=== PATIENT | male | born 1965 | race Caucasian/White ===

== ENCOUNTER 2018-06-21 15:21 | Inpatient (IN) | payer MEDICAID ==
[~2018-06-21] VITALS: Ht 180.3 cm; Wt 86.0 kg
[2018-06-21 15:53] LABS: BASOPHILS # (AUTO) 0.09 x10^3/uL (0-0.1); BASOPHILS % (AUTO) 1 % (0-1); EOSINOPHILS # (AUTO) 0.01 x10^3/uL (0-0.4); EOSINOPHILS % (AUTO) 0 % (1-7); LYMPHOCYTES # (AUTO) 0.98 x10^3/uL (1-3.4); LYMPHOCYTES % (AUTO) 9 % (22-44); MD NO; MEAN CORPUSCULAR HGB CONC 35.2 g/dL (33.2-36.2); MEAN CORPUSCULAR VOLUME 99.5 fL (81-97); MEAN PLATELET VOLUME 7.9 fL (7.4-10.4); MONOCYTES # (AUTO) 0.78 x10^3/uL (0.2-0.8); MONOCYTES % (AUTO) 7 % (2-9); NEUTROPHILS # (AUTO) 9.22 x10^3/uL (1.8-6.8); NEUTROPHILS % (AUTO) 83 % (42-75); PLATELET COUNT 162 x10^3/uL (130-400); RED BLOOD COUNT 4.13 x10^6/uL (4.38-5.82); RED CELL DISTRIBUTION WIDTH 14.2 % (9.4-14.8)
[2018-06-21] MEDS ORDERED: FAMOTIDINE 20 MG/2 ML IVPush ONE (16:00)
[2018-06-21] MEDS ORDERED: SODIUM CHLORIDE 0.9% 1,000ML IVBOLUS ONE ×2 (16:00→16:30)
[2018-06-21] MEDS ORDERED: LORazepam 2 MG/ML, 1ML IVPush ONE (16:00)
[2018-06-21] MEDS ORDERED: THIAMINE 100MG TABLET PO ONE (16:00)
[2018-06-21] MEDS ORDERED: PLEASE ENTER HEIGHT AND WEIGHT MC SCH (16:00)
[2018-06-21] MEDS ORDERED: ONDANSETRON 2MG/ML, 2ML IVPush ONE (16:00)
[2018-06-21 16:06] LABS: ALANINE AMINOTRANSFERASE 70 U/L (12-78); ALBUMIN 3.9 g/dL (3.4-5.0); ANION GAP 12 mmol/L (5-15); CALCIUM 9.3 mg/dL (8.5-10.1); CHLORIDE 99 mmol/L (98-107); CREATININE 3.23 mg/dL (0.7-1.3); INTERNATIONAL NORMALIZED RATIO 1.03 (0.93-1.1); PROTHROMBIN TIME 10.8 Seconds (9.6-11.5)
[2018-06-21 16:08] LABS: ALKALINE PHOSPHATASE 79 U/L (45-117); BILIRUBIN,TOTAL 1.8 mg/dL (0.2-1.0); TOTAL PROTEIN 7.9 g/dL (6.4-8.2)
[2018-06-21] MEDS ORDERED: SODIUM CHLORIDE 0.9% 1,000 ML IV ONE (16:16)
[2018-06-21] MEDS ORDERED: LORazepam 2 MG/ML, 1ML IVPush PRN (16:30)
[2018-06-21] MEDS ORDERED: FAMOTIDINE 20 MG TABLET ONE (16:36)
[2018-06-21] MEDS ORDERED: ONDANSETRON ODT 4 MG ONE (16:36)
[2018-06-21] MEDS ORDERED: THIAMINE 100MG TABLET ONE (16:36)
[2018-06-21] MEDS ORDERED: LORazepam 1MG TABLET ONE (16:37)
[2018-06-21] MEDS ORDERED: ONDANSETRON 2MG/ML, 2ML ONE (16:48)
[2018-06-21] MEDS ORDERED: LORazepam 2 MG/ML, 1ML ONE ×2 (16:48→17:29)
[2018-06-21] MEDS ORDERED: FAMOTIDINE 20 MG/2 ML ONE (16:48)
[2018-06-21 16:53] LABS: TROPONIN I < 0.015 ng/mL (0.000-0.045)
--- NOTE | 2018-06-21 17:32 | NUR ---
PT WITH SILVERSUMMIT. DENIED BY HARSH AT [facility] AND BETY AT [facility]
[2018-06-21] MEDS: CHLORDIAZEPOXIDE 10 MG CAPSULE PO SCH ×2 (18:00→22:05)
[2018-06-21] MEDS ORDERED: LORazepam 2 MG/ML, 1ML IV PRN ×4 (18:00)
[2018-06-21] MEDS ORDERED: LORazepam 1MG TABLET PO PRN (18:00)
[2018-06-21] MEDS ORDERED: NICOTINE 14MG/24 HR PATCH.TD24 ONE (20:05)
[2018-06-21] MEDS ORDERED: HEPARIN 5,000 UNITS/ML, 1ML ONE (20:05)
[2018-06-21] MEDS: HEPARIN 5,000 UNITS/ML, 1ML SQ SCH (20:09)
[2018-06-21] MEDS: NICOTINE 14MG/24 HR PATCH.TD24 TD SCH (20:09)
--- NOTE | 2018-06-21 20:14 | NUR ---
pt is snoring sleeping unable to wake up but air way was maintained applied 1 liter of oxygen via NC vss bp stable at this time
[2018-06-21] MEDS: POTASSIUM CHLORIDE 20 MEQ, MAGNESIUM SULFATE 1 GM, FOLIC ACID 1 MG, THIAMINE 200 MG, MV... IV SCH (20:25)
--- NOTE | 2018-06-21 21:29 | NUR ---
report given to rn pt is ready to be transferred
[2018-06-21 22:03] VITALS: BP 133/82
[2018-06-21 22:59] LABS: AMPHETAMINE SCREEN, URINE Positive (Negative); BARBITURATE SCREEN, URINE Negative (Negative); BENZODIAZEPINE SCREEN, URINE Negative (Negative); CANNABINOID SCREEN, URINE Negative (Negative); COCAINE SCREEN, URINE Negative (Negative); METHADONE SCREEN, URINE Negative (Negative); OPIATE SCREEN, URINE Negative (Negative)
[2018-06-22] MEDS: HEPARIN 5,000 UNITS/ML, 1ML SQ SCH ×3 (02:04→17:37)
[2018-06-22 02:05] VITALS: BP 122/77
[2018-06-22] MEDS: ONDANSETRON 2MG/ML, 2ML IV PRN ×2 (04:57→19:20)
[2018-06-22] MEDS: CHLORDIAZEPOXIDE 10 MG CAPSULE PO SCH ×2 (04:58→12:47)
[2018-06-22] MEDS: NS + 20MEQ KCL 1,000 ML IV SCH ×3 (05:37→23:14)
[2018-06-22] MEDS: LORazepam 1MG TABLET PO PRN ×4 (05:46→19:21)
[2018-06-22 06:07] LABS: CHLORIDE 109 mmol/L (98-107)
[2018-06-22 06:14] LABS: ALANINE AMINOTRANSFERASE 53 U/L (12-78); ALKALINE PHOSPHATASE 65 U/L (45-117); ANION GAP 9 mmol/L (5-15); BILIRUBIN,TOTAL 1.9 mg/dL (0.2-1.0); CALCIUM 8.1 mg/dL (8.5-10.1); CREATININE 1.45 mg/dL (0.7-1.3); TOTAL PROTEIN 6.4 g/dL (6.4-8.2)
[2018-06-22 06:15] LABS: MEAN CORPUSCULAR HEMOGLOBIN 35.2 pg (27.5-34.5); MEAN CORPUSCULAR HGB CONC 34.6 g/dL (33.2-36.2); MEAN CORPUSCULAR VOLUME 101.6 fL (81-97); MEAN PLATELET VOLUME 7.8 fL (7.4-10.4); PLATELET COUNT 121 x10^3/uL (130-400); RED CELL DISTRIBUTION WIDTH 14.3 % (9.4-14.8)
[2018-06-22 06:46] LABS: BASOPHILS # (AUTO) 0.03 x10^3/uL (0-0.1); BASOPHILS % (AUTO) 0 % (0-1); EOSINOPHILS % (AUTO) 3 % (1-7); LYMPHOCYTES # (AUTO) 1.22 x10^3/uL (1-3.4); LYMPHOCYTES % (AUTO) 19 % (22-44); MD SCAN; MONOCYTES # (AUTO) 0.41 x10^3/uL (0.2-0.8); MONOCYTES % (AUTO) 6 % (2-9); NEUTROPHILS % (AUTO) 71 % (42-75)
[2018-06-22 08:05] VITALS: BP 129/73
[2018-06-22 12:45] VITALS: BP 113/71
[2018-06-22] MEDS: PANTOPRAZOLE 20MG TABLET PO SCH (17:38)
[2018-06-22] MEDS: NICOTINE 14MG/24 HR PATCH.TD24 TD SCH (17:41)
[2018-06-22 20:07] VITALS: BP 128/84
[2018-06-22] MEDS: POTASSIUM CHLORIDE 20 MEQ, MAGNESIUM SULFATE 1 GM, FOLIC ACID 1 MG, THIAMINE 200 MG, MV... IV SCH (23:05)
[2018-06-23] MEDS: HEPARIN 5,000 UNITS/ML, 1ML SQ SCH ×3 (01:31→17:51)
[2018-06-23] MEDS: LORazepam 1MG TABLET PO PRN ×2 (01:31→09:04)
[2018-06-23 02:06] VITALS: BP 105/69
[2018-06-23 05:39] LABS: BASOPHILS # (AUTO) 0.03 x10^3/uL (0-0.1); BASOPHILS % (AUTO) 1 % (0-1); EOSINOPHILS # (AUTO) 0.23 x10^3/uL (0-0.4); EOSINOPHILS % (AUTO) 4 % (1-7); LYMPHOCYTES # (AUTO) 1.16 x10^3/uL (1-3.4); LYMPHOCYTES % (AUTO) 22 % (22-44); MD NO; MEAN CORPUSCULAR HEMOGLOBIN 35.4 pg (27.5-34.5); MEAN CORPUSCULAR HGB CONC 34.9 g/dL (33.2-36.2); MEAN CORPUSCULAR VOLUME 101.5 fL (81-97); MEAN PLATELET VOLUME 7.4 fL (7.4-10.4); MONOCYTES # (AUTO) 0.38 x10^3/uL (0.2-0.8); MONOCYTES % (AUTO) 7 % (2-9); NEUTROPHILS # (AUTO) 3.58 x10^3/uL (1.8-6.8); NEUTROPHILS % (AUTO) 67 % (42-75); PLATELET COUNT 130 x10^3/uL (130-400); RED BLOOD COUNT 3.34 x10^6/uL (4.38-5.82); RED CELL DISTRIBUTION WIDTH 14.3 % (9.4-14.8)
[2018-06-23 06:28] LABS: ALANINE AMINOTRANSFERASE 57 U/L (12-78); ALBUMIN 2.6 g/dL (3.4-5.0); ANION GAP 6 mmol/L (5-15); CHLORIDE 109 mmol/L (98-107); CREATININE 0.89 mg/dL (0.7-1.3)
[2018-06-23] MEDS: NS + 20MEQ KCL 1,000 ML IV SCH ×2 (06:30→17:50)
[2018-06-23] MEDS: PANTOPRAZOLE 20MG TABLET PO SCH ×2 (06:30→17:51)
[2018-06-23 06:55] LABS: ALKALINE PHOSPHATASE 63 U/L (45-117); BILIRUBIN,TOTAL 0.8 mg/dL (0.2-1.0)
[2018-06-23 07:48] VITALS: BP 159/90
[2018-06-23] MEDS: LORazepam 0.5MG TABLET PO PRN ×2 (11:59→20:43)
[2018-06-23 13:30] VITALS: BP 146/78
[2018-06-23] MEDS: NICOTINE 14MG/24 HR PATCH.TD24 TD SCH (17:50)
[2018-06-23 18:46] VITALS: BP 169/94
[2018-06-23] MEDS: ONDANSETRON 2MG/ML, 2ML IV PRN (20:45)
[2018-06-23] MEDS: POTASSIUM CHLORIDE 20 MEQ, MAGNESIUM SULFATE 1 GM, FOLIC ACID 1 MG, THIAMINE 200 MG, MV... IV SCH (22:55)
[2018-06-24] MEDS: LORazepam 1MG TABLET PO PRN ×3 (00:05→19:47)
[2018-06-24 00:52] VITALS: BP 168/93
[2018-06-24] MEDS: HEPARIN 5,000 UNITS/ML, 1ML SQ SCH ×3 (01:00→17:43)
[2018-06-24] MEDS: PANTOPRAZOLE 20MG TABLET PO SCH ×2 (06:21→17:43)
[2018-06-24 07:23] VITALS: BP 161/86
[2018-06-24] MEDS: THIAMINE 100MG TABLET PO SCH (07:40)
[2018-06-24] MEDS: FOLIC ACID 1 MG TABLET PO SCH (07:40)
[2018-06-24] MEDS: MULTIVITAMIN 1 TABLET PO SCH (07:40)
[2018-06-24 08:10] LABS: ALANINE AMINOTRANSFERASE 71 U/L (12-78); ALBUMIN 2.8 g/dL (3.4-5.0); ANION GAP 6 mmol/L (5-15); CALCIUM 8.3 mg/dL (8.5-10.1); CHLORIDE 104 mmol/L (98-107); CREATININE 0.73 mg/dL (0.7-1.3)
[2018-06-24 08:13] LABS: ALKALINE PHOSPHATASE 71 U/L (45-117); BILIRUBIN,TOTAL 0.9 mg/dL (0.2-1.0); TOTAL PROTEIN 6.6 g/dL (6.4-8.2)
[2018-06-24] MEDS: NS + 20MEQ KCL 1,000 ML IV SCH ×2 (10:15→22:50)
[2018-06-24 13:34] VITALS: BP 161/91
[2018-06-24] MEDS ORDERED: MAGNESIUM SULFATE 3 GM in SODIUM CHLORIDE 0.9% 100 ML IV ONE (14:00)
[2018-06-24] MEDS ORDERED: POTASSIUM CHLORIDE 20 MEQ TAB.ER.PRT PO ONE (14:00)
[2018-06-24 14:58] LABS: MICROSCOPIC NOT IND
[2018-06-24 15:03] LABS: CULTURE INDICATED? NO
[2018-06-24] MEDS: NICOTINE 14MG/24 HR PATCH.TD24 TD SCH (17:43)
[2018-06-24] MEDS: ONDANSETRON 2MG/ML, 2ML IV PRN (19:47)
[2018-06-24 20:23] VITALS: BP 153/88
[2018-06-25] MEDS: LORazepam 1MG TABLET PO PRN ×3 (02:09→14:53)
[2018-06-25] MEDS: HEPARIN 5,000 UNITS/ML, 1ML SQ SCH ×3 (02:09→17:55)
[2018-06-25 02:12] VITALS: BP 169/96
[2018-06-25] MEDS: PANTOPRAZOLE 20MG TABLET PO SCH ×2 (05:38→17:55)
[2018-06-25 06:14] LABS: CHLORIDE 107 mmol/L (98-107)
[2018-06-25 06:26] LABS: ALANINE AMINOTRANSFERASE 87 U/L (12-78); ALKALINE PHOSPHATASE 74 U/L (45-117); ANION GAP 6 mmol/L (5-15); BILIRUBIN,TOTAL 0.6 mg/dL (0.2-1.0); CALCIUM 8.7 mg/dL (8.5-10.1); CREATININE 0.75 mg/dL (0.7-1.3); TOTAL PROTEIN 6.7 g/dL (6.4-8.2)
[2018-06-25 06:31] LABS: BASOPHILS # (AUTO) 0.02 x10^3/uL (0-0.1); BASOPHILS % (AUTO) 0 % (0-1); EOSINOPHILS # (AUTO) 0.33 x10^3/uL (0-0.4); EOSINOPHILS % (AUTO) 5 % (1-7); LYMPHOCYTES # (AUTO) 1.13 x10^3/uL (1-3.4); LYMPHOCYTES % (AUTO) 17 % (22-44); MD NO; MEAN CORPUSCULAR HEMOGLOBIN 34.3 pg (27.5-34.5); MEAN CORPUSCULAR HGB CONC 33.9 g/dL (33.2-36.2); MEAN CORPUSCULAR VOLUME 101.2 fL (81-97); MEAN PLATELET VOLUME 7.4 fL (7.4-10.4); MONOCYTES # (AUTO) 0.63 x10^3/uL (0.2-0.8); MONOCYTES % (AUTO) 10 % (2-9); NEUTROPHILS # (AUTO) 4.53 x10^3/uL (1.8-6.8); NEUTROPHILS % (AUTO) 68 % (42-75); PLATELET COUNT 253 x10^3/uL (130-400); RED BLOOD COUNT 3.74 x10^6/uL (4.38-5.82); RED CELL DISTRIBUTION WIDTH 14.6 % (9.4-14.8)
[2018-06-25 08:26] VITALS: BP 158/91
[2018-06-25] MEDS: MULTIVITAMIN 1 TABLET PO SCH (10:01)
[2018-06-25] MEDS: THIAMINE 100MG TABLET PO SCH (10:01)
[2018-06-25] MEDS: FOLIC ACID 1 MG TABLET PO SCH (10:01)
[2018-06-25 12:40] VITALS: BP 150/83
[2018-06-25] MEDS ORDERED: NICOTINE 21 MG/24 HR PATCH.TD24 ONE (13:07)
[2018-06-25] MEDS: NICOTINE 21 MG/24 HR PATCH.TD24 TD SCH (13:10)
[2018-06-25] MEDS: NS + 20MEQ KCL 1,000 ML IV SCH (15:30)
[2018-06-25 20:29] VITALS: BP 135/81
[2018-06-25] MEDS: LORazepam 0.5MG TABLET PO PRN (23:40)
[2018-06-26] MEDS: HEPARIN 5,000 UNITS/ML, 1ML SQ SCH ×3 (01:17→17:36)
[2018-06-26 01:47] VITALS: BP 145/80
[2018-06-26] MEDS: LORazepam 1MG TABLET PO PRN (03:01)
[2018-06-26 05:18] LABS: BASOPHILS # (AUTO) 0.04 x10^3/uL (0-0.1); BASOPHILS % (AUTO) 1 % (0-1); EOSINOPHILS # (AUTO) 0.32 x10^3/uL (0-0.4); EOSINOPHILS % (AUTO) 4 % (1-7); LYMPHOCYTES # (AUTO) 1.32 x10^3/uL (1-3.4); LYMPHOCYTES % (AUTO) 17 % (22-44); MD NO; MEAN CORPUSCULAR HEMOGLOBIN 35.1 pg (27.5-34.5); MEAN CORPUSCULAR HGB CONC 34.9 g/dL (33.2-36.2); MEAN CORPUSCULAR VOLUME 100.6 fL (81-97); MEAN PLATELET VOLUME 7.7 fL (7.4-10.4); MONOCYTES # (AUTO) 0.75 x10^3/uL (0.2-0.8); MONOCYTES % (AUTO) 9 % (2-9); NEUTROPHILS # (AUTO) 5.52 x10^3/uL (1.8-6.8); NEUTROPHILS % (AUTO) 70 % (42-75); PLATELET COUNT 292 x10^3/uL (130-400); RED BLOOD COUNT 4.06 x10^6/uL (4.38-5.82); RED CELL DISTRIBUTION WIDTH 14.9 % (9.4-14.8)
[2018-06-26 05:29] LABS: CHLORIDE 105 mmol/L (98-107)
[2018-06-26 05:50] LABS: ALANINE AMINOTRANSFERASE 120 U/L (12-78); ALBUMIN 3.2 g/dL (3.4-5.0); ALKALINE PHOSPHATASE 77 U/L (45-117); ANION GAP 8 mmol/L (5-15); BILIRUBIN,TOTAL 0.6 mg/dL (0.2-1.0); CALCIUM 9.2 mg/dL (8.5-10.1); CREATININE 0.83 mg/dL (0.7-1.3); TOTAL PROTEIN 7.2 g/dL (6.4-8.2)
[2018-06-26] MEDS: PANTOPRAZOLE 20MG TABLET PO SCH ×2 (05:56→16:00)
[2018-06-26] MEDS: THIAMINE 100MG TABLET PO SCH (09:19)
[2018-06-26] MEDS: FOLIC ACID 1 MG TABLET PO SCH (09:19)
[2018-06-26] MEDS: MULTIVITAMIN 1 TABLET PO SCH (09:19)
[2018-06-26] MEDS ORDERED: SPIR1TAB3 PO (09:54)
[2018-06-26] MEDS ORDERED: ATEN100T PO (09:55)
[2018-06-26] MEDS ORDERED: LOSA100T14 PO (09:55)
[2018-06-26] MEDS: NICOTINE 21 MG/24 HR PATCH.TD24 TD SCH (12:42)
[2018-06-26 13:01] VITALS: BP 152/90
[2018-06-26] MEDS: LORazepam 0.5MG TABLET PO PRN ×2 (14:43→22:27)
[2018-06-26] MEDS: SODIUM CHLORIDE 0.45% 1,000 ML IV SCH (16:00)
[2018-06-26] MEDS ORDERED: DOCUSATE 50 MG/5 ML, 10ML UDC PO PRN (17:30)
[2018-06-26 18:45] VITALS: BP 141/79
[2018-06-27 00:09] VITALS: BP 146/77
[2018-06-27] MEDS: LORazepam 1MG TABLET PO PRN (01:48)
[2018-06-27] MEDS: ONDANSETRON 2MG/ML, 2ML IV PRN (01:49)
[2018-06-27] MEDS: HEPARIN 5,000 UNITS/ML, 1ML SQ SCH ×3 (01:49→17:01)
[2018-06-27 05:05] LABS: BASOPHILS # (AUTO) 0.06 x10^3/uL (0-0.1); BASOPHILS % (AUTO) 1 % (0-1); EOSINOPHILS # (AUTO) 0.35 x10^3/uL (0-0.4); EOSINOPHILS % (AUTO) 4 % (1-7); LYMPHOCYTES # (AUTO) 1.72 x10^3/uL (1-3.4); LYMPHOCYTES % (AUTO) 20 % (22-44); MD NO; MEAN CORPUSCULAR HEMOGLOBIN 34.7 pg (27.5-34.5); MEAN CORPUSCULAR HGB CONC 34.3 g/dL (33.2-36.2); MEAN PLATELET VOLUME 7.4 fL (7.4-10.4); MONOCYTES # (AUTO) 0.79 x10^3/uL (0.2-0.8); MONOCYTES % (AUTO) 9 % (2-9); NEUTROPHILS # (AUTO) 5.58 x10^3/uL (1.8-6.8); NEUTROPHILS % (AUTO) 66 % (42-75); PLATELET COUNT 379 x10^3/uL (130-400); RED BLOOD COUNT 3.96 x10^6/uL (4.38-5.82); RED CELL DISTRIBUTION WIDTH 14.1 % (9.4-14.8)
[2018-06-27 05:09] LABS: ALANINE AMINOTRANSFERASE 129 U/L (12-78); ALBUMIN 2.9 g/dL (3.4-5.0); ANION GAP 8 mmol/L (5-15); CALCIUM 8.5 mg/dL (8.5-10.1); CHLORIDE 104 mmol/L (98-107); CREATININE 0.78 mg/dL (0.7-1.3)
[2018-06-27 05:11] LABS: ALKALINE PHOSPHATASE 71 U/L (45-117); BILIRUBIN,TOTAL 0.5 mg/dL (0.2-1.0); TOTAL PROTEIN 6.6 g/dL (6.4-8.2)
[2018-06-27] MEDS: PANTOPRAZOLE 20MG TABLET PO SCH ×2 (05:30→17:01)
[2018-06-27] MEDS: SODIUM CHLORIDE 0.45% 1,000 ML IV SCH ×3 (05:31→22:37)
[2018-06-27 07:37] VITALS: BP 132/75
[2018-06-27] MEDS: THIAMINE 100MG TABLET PO SCH (08:20)
[2018-06-27] MEDS: MULTIVITAMIN 1 TABLET PO SCH (08:20)
[2018-06-27] MEDS: FOLIC ACID 1 MG TABLET PO SCH (08:20)
[2018-06-27] MEDS: LORazepam 0.5MG TABLET PO PRN ×2 (11:27→21:04)
[2018-06-27 13:18] VITALS: BP 146/87
[2018-06-27] MEDS: NICOTINE 21 MG/24 HR PATCH.TD24 TD SCH (14:20)
[2018-06-27 18:43] VITALS: BP 142/90
[2018-06-28] MEDS: HEPARIN 5,000 UNITS/ML, 1ML SQ SCH ×2 (01:28→09:00)
[2018-06-28 02:17] VITALS: BP 142/83
[2018-06-28] MEDS: LORazepam 0.5MG TABLET PO PRN ×2 (03:22→10:19)
[2018-06-28 05:10] LABS: BASOPHILS # (AUTO) 0.05 x10^3/uL (0-0.1); BASOPHILS % (AUTO) 1 % (0-1); EOSINOPHILS # (AUTO) 0.35 x10^3/uL (0-0.4); EOSINOPHILS % (AUTO) 4 % (1-7); LYMPHOCYTES # (AUTO) 1.45 x10^3/uL (1-3.4); LYMPHOCYTES % (AUTO) 17 % (22-44); MD NO; MEAN CORPUSCULAR HEMOGLOBIN 34.1 pg (27.5-34.5); MEAN CORPUSCULAR HGB CONC 33.6 g/dL (33.2-36.2); MEAN CORPUSCULAR VOLUME 101.5 fL (81-97); MEAN PLATELET VOLUME 7.6 fL (7.4-10.4); MONOCYTES # (AUTO) 0.74 x10^3/uL (0.2-0.8); MONOCYTES % (AUTO) 9 % (2-9); NEUTROPHILS # (AUTO) 6.04 x10^3/uL (1.8-6.8); NEUTROPHILS % (AUTO) 70 % (42-75); PLATELET COUNT 385 x10^3/uL (130-400); RED BLOOD COUNT 3.85 x10^6/uL (4.38-5.82); RED CELL DISTRIBUTION WIDTH 14.1 % (9.4-14.8)
[2018-06-28 05:23] LABS: ALBUMIN 3.1 g/dL (3.4-5.0); ANION GAP 5 mmol/L (5-15); CALCIUM 8.6 mg/dL (8.5-10.1); CHLORIDE 105 mmol/L (98-107)
[2018-06-28 05:28] LABS: ALANINE AMINOTRANSFERASE 127 U/L (12-78); ALKALINE PHOSPHATASE 70 U/L (45-117); BILIRUBIN,TOTAL 0.4 mg/dL (0.2-1.0); CREATININE 0.82 mg/dL (0.7-1.3); TOTAL PROTEIN 6.7 g/dL (6.4-8.2)
[2018-06-28] MEDS: SODIUM CHLORIDE 0.45% 1,000 ML IV SCH (06:23)
[2018-06-28] MEDS: PANTOPRAZOLE 20MG TABLET PO SCH (06:23)
[2018-06-28 06:46] VITALS: BP 143/86
[2018-06-28] MEDS ORDERED: THIA100T67 PO (07:43)
[2018-06-28] MEDS ORDERED: FOLI-17 PO (07:43)
[2018-06-28] MEDS ORDERED: PANT40TA5 PO (09:22)
[2018-06-28] MEDS: MULTIVITAMIN 1 TABLET PO SCH (10:19)
[2018-06-28] MEDS: FOLIC ACID 1 MG TABLET PO SCH (10:19)
[2018-06-28] MEDS: THIAMINE 100MG TABLET PO SCH (10:19)
[2018-06-28] MEDS ORDERED: NICOTINE 21 MG/24 HR PATCH.TD24 TD SCH (10:30)
== END 2018-06-28 12:05 | disposition home or self-care (01) | DRG 56 ==
LOC: ED 16:51 → EDIP 17:22 → 4EST 21:45 → DCLOUNGE 06-28 12:00
PROVIDERS: ADMIT Hospitalist; ATTEND Hospitalist
DX: G31.2 Degeneration of nervous system due to alcohol (principal); N17.0 Acute kidney failure with tubular necrosis; F10.230 Alcohol dependence with withdrawal, uncomplicated; E87.1 Hypo-osmolality and hyponatremia; K92.0 Hematemesis; Y90.9 Presence of alcohol in blood, level not specified; F15.129 Other stimulant abuse with intoxication, unspecified; D53.9 Nutritional anemia, unspecified; E87.6 Hypokalemia; E83.42 Hypomagnesemia; R74.0 Nonspecific elevation of levels of transaminase and lactic acid dehydrogenase [LDH]; D72.829 Elevated white blood cell count, unspecified; D75.89 Other specified diseases of blood and blood-forming organs; F10.220 Alcohol dependence with intoxication, uncomplicated; F17.210 Nicotine dependence, cigarettes, uncomplicated; F41.9 Anxiety disorder, unspecified; Z82.49 Family history of ischemic heart disease and other diseases of the circulatory system; Z80.9 Family history of malignant neoplasm, unspecified; Z94.7 Corneal transplant status
CPT/HCPCS: 36415; 96361; 99291; J3490; J7042; 71045; 76770; 80053; 80307; 81003; 82140; 82607; 83690; 83735; 84100; 84443; 84484; 85025; 85610; 85730; 93005; 96374; 96375; G0378; J1644; J2405; J3411; J3475; J3480; J2060; J7030